=== PATIENT | female | born 1975 | race Hispanic/Latino ===

== ENCOUNTER 2019-10-23 19:41 | Inpatient (IN) | payer OTHER, SELFPAY ==
[~2019-10-23 19:41] MED LIST: Iopamidol 370 76% 100 ML VIAL ONE
[2019-10-23] MEDS ORDERED: Ondansetron PF 4 MG/2 ML Vial ONE (20:15)
[2019-10-23] MEDS ORDERED: Acetaminophen 500 MG TAB ONE (20:15)
[2019-10-23 20:29] LABS: Bilirubin Negative (Negative); Blood, Urine 1+ (Negative); Clarity Clear (Clear); Glucose, Urine (Dipstick) Normal (Negative); Ketone, Urine Negative (Negative); Leukocyte 75 Leu/uL (Negative); Nitrite Negative (Negative); Protein, Urine (Dipstick) 30 mg/dL (Neg-Trace); RBC/HPF 0-3 HPF (0-3); Specific Gravity, Urine 1.005 (1.002-1.036); Squamous Epithelial 0-3 HPF (0-3); Urobilinogen Normal mg/dL (Less than 2); pH, Urine 6.5 (5.0-9.0)
[2019-10-23 20:36] LABS: Bacteria/HPF None Seen HPF (None Seen)
[2019-10-23 20:45] LABS: Hemoglobin 8.1 g/dL (12.0-16.0); Mean Corpuscular HGB CONC 30.3 g/dL (32.0-36.0); Mean Corpuscular Hemoglobin 20.4 pg (27.0-31.0); Mean Corpuscular Volume 67.3 fL (78.0-98.0); Mean Platelet Volume 10.1 fL (7.4-10.4); Platelet Count 490 thou/uL (130-400); RBC Distribution Width 16.6 % (11.5-14.5); Red Blood Cell (RBC) Count 3.96 mill/uL (4.20-5.40); White Blood Cell (WBC) Count 14.7 thou/uL (4.8-10.8)
[2019-10-23 21:00] LABS: Band 1 % (5-11); Eosinophils 1 % (0-10); Hypochromia SLIGHT = 6-15 cells (100X) (0-5/hpf); Lymphocytes 6 % (21-51); MDiff Complete? YES; Microcytosis SLIGHT = 6-15 cells (100X) (0-5/hpf); Monocytes 4 % (0-10); Neutrophil 88 % (42-75); Platelet Morphology Comment Appears Adequate
[2019-10-23 21:02] LABS: ALT (SGPT) 23 U/L (8-55); AST (SGOT) 22 U/L (5-34); Albumin 4.1 g/dL (3.5-5.0); Alkaline Phosphatase 129 U/L (40-110); Anion Gap 15 mmol/L (10-20); BUN (Urea Nitrogen) 6 mg/dL (7.0-18.7); Bilirubin, Total 0.3 mg/dL (0.2-1.2); Calc. Creatinine Clearance 0 mL/min (70-130); Calcium 9.6 mg/dL (7.8-10.44); Carbon Dioxide 23 mmol/L (22-29); Chloride 101 mmol/L (98-107); Estimated GFR-MDRD 54; Globulin 4.7 g/dL (2.4-3.5); Glucose 144 mg/dL (70-105); Potassium 3.2 mmol/L (3.5-5.1); Protein, Total 8.8 g/dL (6.0-8.3); Sodium 136 mmol/L (136-145)
[2019-10-23 21:09] LABS: Pregnancy Test - Urine (BHCG) Negative (Negative); Pregu Control Background? CLEAR/WHITE (CLR/WHITE); Pregu Control Bar Appear? YES (CONTROL BAR); Specific Gravity 1.005 (1.002-1.036)
[2019-10-23] MEDS ORDERED: Morphine 4 MG/ML VIAL ONE (21:21)
--- NOTE | 2019-10-23 22:04 | CT ---
EXAM: CT ABDOMEN AND PELVIS HISTORY: Worsening right flank pain. COMPARISON: None. Procedure: Multiple contiguous axial images were obtained and a CT of the abdomen and pelvis with IV contrast. C oronal reformats were performed. FINDINGS: Lower Chest: within normal limits. Vessels: Normal caliber aorta Heart: Normal heart size Abdomen: Portal vein:Patent Gallbladder: CT evidence of cholelithiasis without definite evidence of cholecystitis. Liver: within normal limits. Pancreas: within normal limits. Spleen: within normal limits. Adrenals: within normal limits. Kidneys: Mildly decreased enhancement of the right kidney with a subtle striated nephrogram. No evide nce of obstructive uropathy. Correlate for pyelonephritis. Peritoneum: No ascites or free air, no fluid collection. Bowel: Limited evaluation due to the lack of oral contrast administration. No evidence of bowel obstr uction. Ileocecal junction is unremarkable. Normal caliber appendix. Scattered fecal material in a nondistended, nondilated colon. Mesentery and Retroperitoneum: No enlarged mesenteric or retroperitoneal lymph nodes. Abdominal Wall: Ventral umbilical hernia containing mesenteric fat Pelvis: Reproductive Organs: Reproductive organs are unremarkable. Pelvis: No mass, lymphadenopathy, free air or free fluid. Bladder: within normal limits. Bones: within normal limits. IMPRESSION: 1. Normal caliber appendix 2. Cholelithiasis without definite evidence of cholecystitis. 3. Decreased enhancement of the right kidney with a mildly striated nephrogram. Correlate for pyelone phritis.
[2019-10-23] MEDS ORDERED: cefTRIAXone\\ROCEPHIN 2 GM VIAL ONE (22:18)
[2019-10-24] MEDS ORDERED: Ondansetron PF 4 MG/2 ML Vial IVP PRN ×2 (01:01→01:27)
[2019-10-24] MEDS ORDERED: Ondansetron ODT 4 MG TAB SL PRN (01:01)
[2019-10-24] MEDS ORDERED: Acetaminophen 325 MG TAB PO PRN (01:01)
[2019-10-24] MEDS ORDERED: Sodium Chloride 0.9% 1,000 ML IV SCH (01:01)
[2019-10-24] MEDS ORDERED: Acetaminophen 650 MG Suppository PR PRN (01:27)
[2019-10-24] MEDS ORDERED: Ondansetron ODT 4 MG TAB PO PRN (01:27)
[2019-10-24] MEDS ORDERED: Morphine 2 MG/ML VIAL SLOW IVP SCH (01:30)
--- NOTE | 2019-10-24 01:41 | PDOC.HHP ---
Hospitalist HPI - History of Present Illness Right flank pain History of Present Illness: Patient presents with complaints of gradually worsening right flank pain which radiates to right groin. Reports having issues with kidney infection in the past but has never had kidney stones. Patient states she continued to feel worse and initially pain was managed with Motrin and Tylenol but in the last couple of days her pain has been uncontrollable with OTC medications. She reports mild nausea. Denies any vomiting. Also reports having fevers and sweats since yesterday. On arrival today her pain was a 10/10 in severity and at present it has eased to a 7/10. She describes pain as a strong ache. ED Course: In the ED she had labs done which were notable for hgb of 8.1 and WCC of 14.7. Platelets 490. Neutrophils 88, Bands 1 Potassium 3.2, BUN 6, Creat 1.10, GFR 54. Lactic acid 0.9. Urine test was negative. CT A/P: 1. Normal caliber appendix 2. Cholelithiasis without definite evidence of cholecystitis. 3. Decreased enhancement of the right kidney with a mildly striated nephrogram. Correlate for pyelonephritis She was started on IV antibiotics with Rocephin, given Morphine for pain. Also given Tylenol 1 g for fever. She has gotten 2 L of NS IV. Hospitalist ROS - Review of Systems Constitutional: reports: fever, chills, malaise Eyes: denies: pain, vision change, conjunctivae inflammation, eyelid inflammation, redness, other ENT: denies: ear pain, ear discharge, nose pain, nose discharge, nose congestion , mouth pain, mouth swelling, throat pain, throat swelling, other Respiratory: denies: cough, dry, shortness of breath, hemoptysis, SOB with excertion, pleuritic pain, sputum, wheezing, other Cardiovascular: denies: chest pain, palpitations, orthopnea, paroxysmal noc. dyspnea, edema, light headedness, other Gastrointestinal: reports: nausea, abdominal pain, other (right flank) Genitourinary: denies: dysuria, frequency, incontinence, hematuria, retention, other Musculoskeletal: reports: back pain (right flank). denies: neck pain, shoulder pain, arm pain, hand pain, leg pain, foot pain, other Skin: denies: rash, lesions, tamera, bruising, other Neurological: denies: weakness, numbness, incoordination, change in speech, confusion, seizures, other - Medication Medications: ALLERGIES: No known drug allergies. CURRENT MEDICATIONS: None. 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 Gastrointestinal: reports: no pertinent history Renal/: reports: Other (pyelonephritis) - Past Surgical History Past Surgical History: reports: (x2) - Family History Family History: reports: no pertinent history - Social History Smoking Status: Never smoker Alcohol: reports: None Drugs: reports: none Living Situation: With Family Activity level: independent ambulation - Exam General Appearance: NAD, awake alert Eye: PERRL, anicteric sclera ENT: normocephalic atraumatic, no oropharyngeal lesions, moist mucosa Neck: supple, symmetric, no lymphadenopathy Heart: RRR, no murmur, normal peripheral pulses Respiratory: CTAB, no wheezes, no rales, no ronchi, normal chest expansion Gastrointestinal: soft, non-tender, normal bowel sounds, no guarding, no rigidity Gastrointestinal - other findings: right CVA tenderness Extremities: no edema Skin: normal turgor, no lesions, no rashes Neurological: cranial nerve grossly intact, normal sensation to touch, no weakness, no focal deficits Musculoskeletal: normal tone, normal strength Psychiatric: normal affect, normal behavior, A&O x 3 Hospitalist Results - Labs Result Diagrams: 10/23/19 20:23 10/23/19 20:23 Lab results: WBC 14.7 thou/uL (4.8-10.8) H 10/23/19 20:23 Hgb 8.1 g/dL (12.0-16.0) L 10/23/19 20:23 Hct 26.6 % (36.0-47.0) L 10/23/19 20:23 MCV 67.3 fL (78.0-98.0) L 10/23/19 20:23 Plt Count 490 thou/uL (130-400) H 10/23/19 20:23 Band Neuts % (Manual) 1 % (5-11) L 10/23/19 20:23 Sodium 136 mmol/L (136-145) 10/23/19 20:23 Potassium 3.2 mmol/L (3.5-5.1) L 10/23/19 20:23 Chloride 101 mmol/L (98-107) 10/23/19 20:23 Carbon Dioxide 23 mmol/L (22-29) 10/23/19 20:23 BUN 6 mg/dL (7.0-18.7) L 10/23/19 20:23 Creatinine 1.10 mg/dL (0.6-1.1) 10/23/19 20:23 Glucose 144 mg/dL (70-105) H 10/23/19 20:23 Lactic Acid 0.9 mmol/L (0.5-2.2) 10/23/19 20:55 Calcium 9.6 mg/dL (7.8-10.44) 10/23/19 20:23 Total Bilirubin 0.3 mg/dL (0.2-1.2) 10/23/19 20:23 AST 22 U/L (5-34) 10/23/19 20:23 ALT 23 U/L (8-55) 10/23/19 20:23 Alkaline Phosphatase 129 U/L (40-110) H 10/23/19 20:23 Serum Total Protein 8.8 g/dL (6.0-8.3) H 10/23/19 20:23 Albumin 4.1 g/dL (3.5-5.0) 10/23/19 20:23 Urine Ketones Negative mg/dL (Negative) 10/23/19 19:58 Urine Blood 1+ (Negative) A 10/23/19 19:58 Urine Nitrite Negative (Negative) 10/23/19 19:58 Ur Leukocyte Esterase 75 Nena/uL (Negative) A 10/23/19 19:58 Urine RBC 0-3 HPF (0-3) 10/23/19 19:58 Urine WBC 11-20 HPF (0-3) A 10/23/19 19:58 Ur Squamous Epith Cells 0-3 HPF (0-3) 10/23/19 19:58 Urine Bacteria None Seen HPF (None Seen) 10/23/19 19:58 - Radiology Interpretation CT scan - abdomen Status: report reviewed by me Hospitalist H&P A/P - Problem (1) Right flank pain Code(s): R10.9 - UNSPECIFIED ABDOMINAL PAIN Status: Acute (2) Pyelonephritis Code(s): N12 - TUBULO-INTERSTITIAL NEPHRITIS, NOT SPCF ACUTE OR CHRONIC Status: Suspected (3) Fever Code(s): R50.9 - FEVER, UNSPECIFIED Status: Acute (4) Nausea alone Status: Acute (5) Hypokalemia Code(s): E87.6 - HYPOKALEMIA Status: Acute (6) Anemia Code(s): D64.9 - ANEMIA, UNSPECIFIED Status: Acute - Plan Plan: Continue IV antibiotics Urine culture pending. Continue IV fluids. Monitor H/H. Iron studies. Monitor electrolytes and replace as necessary. GI prophylaxis with Famotidine. DVT Prophylaxis with mechanical SCDs. Screening COVID test pending. FULL CODE Surrogate decision maker is her Clarence Carlisle.
[2019-10-24] MEDS: Sodium Chloride 0.9% 1,000 ML IV SCH ×3 (02:04→21:29)
[2019-10-24 03:32] LABS: #Eosinphils 0.1 thou/uL (0.0-0.7); #Lymphocytes 1.5 thou/uL (1.20-3.40); #Monocytes 0.8 thou/uL (0.11-0.59); #Neutrophils 10.2 thou/uL (1.40-6.50); %Eosinophils 0.9 % (0.0-10.0); %Lymphocytes 11.6 % (21.0-51.0); %Monocytes 6.5 % (0.0-10.0); Hemoglobin 7.7 g/dL (12.0-16.0); Mean Corpuscular HGB CONC 30.8 g/dL (32.0-36.0); Mean Corpuscular Hemoglobin 20.9 pg (27.0-31.0); Mean Corpuscular Volume 67.9 fL (78.0-98.0); Mean Platelet Volume 9.8 fL (7.4-10.4); Platelet Count 445 thou/uL (130-400); RBC Distribution Width 16.7 % (11.5-14.5); Red Blood Cell (RBC) Count 3.69 mill/uL (4.20-5.40); White Blood Cell (WBC) Count 12.6 thou/uL (4.8-10.8)
[2019-10-24 03:45] LABS: Anion Gap 12 mmol/L (10-20); BUN (Urea Nitrogen) 4 mg/dL (7.0-18.7); Calc. Creatinine Clearance 0 mL/min (70-130); Calcium 8.9 mg/dL (7.8-10.44); Carbon Dioxide 24 mmol/L (22-29); Chloride 104 mmol/L (98-107); Estimated GFR-MDRD 62; Glucose 164 mg/dL (70-105); Potassium 3.2 mmol/L (3.5-5.1); Sodium 137 mmol/L (136-145)
[2019-10-24 03:46] LABS: Iron 9 ug/dL (50-170); Iron Binding Capacity, Total 205 mcg/dL (265-497)
[2019-10-24] MEDS: traMADol HCl 50 MG TAB PO PRN ×2 (05:15→18:26)
[2019-10-24] MEDS: Acetaminophen 325 MG TAB PO PRN ×2 (05:15→16:31)
[2019-10-24 06:19] LABS: Ferritin 63.05 ng/mL (10-291)
[2019-10-24] MEDS: Ferrous Sulfate 325 MG TAB PO SCH ×2 (08:32→16:31)
[2019-10-24] MEDS: Famotidine/PF 20 mg/2ml Vial SLOW IVP SCH ×2 (08:34→20:50)
[2019-10-24 12:01] LABS: SARS-CoV-2 MS2 Positive; SARS-CoV-2 N Gene Negative; SARS-CoV-2 S Gene Negative; SARS-CoV-2 by NAA Not Detected (NotDetected); SARS-CoV-2 orf1ab Negative
--- NOTE | 2019-10-24 13:53 | PDOC.HOSPP ---
- Subjective Encounter Date: 10/24/19 Encounter Time: 09:30 Subjective: no nausea or abd pain this morning feels better - Objective Vital Signs & Weight: Vital Signs (12 hours) Temp Pulse Resp BP Pulse Ox 10/24/19 11:31 157/86 H 10/24/19 10:59 98 F 96 18 168/107 H 99 10/24/19 07:32 98.6 F 91 18 132/77 98 10/24/19 04:00 99.2 F 101 H 16 155/91 H 97 Weight Weight 2.765 oz I&O: 10/23/19 10/24/19 10/25/19 06:59 06:59 06:59 Intake Total 1400 Balance 1400 Result Diagrams: 10/24/19 03:22 10/24/19 03:22 Hospitalist ROS - Medication Medications: Active Medications Generic Name Dose Route Start Last Admin Trade Name Freq PRN Reason Stop Dose Admin Acetaminophen 650 mg 10/24/19 01:27 10/24/19 05:15 Tylenol PO 650 mg Q4H PRN Administration Headache/Fever/Mild Pain (1-3) Famotidine 20 mg 10/24/19 09:00 10/24/19 08:34 Pepcid SLOW IVP 20 mg Q12HR CHRISTOPHE Administration Ferrous Sulfate 325 mg 10/24/19 08:00 10/24/19 08:32 Feosol PO 325 mg BID-WM CHRISTOPHE Administration Sodium Chloride 1,000 mls @ 100 mls/hr 10/24/19 01:32 10/24/19 11:31 Normal Saline 0.9% IV 1,000 mls .Q10H CHRISTOPHE Administration Sodium Chloride 10 ml 10/24/19 09:00 10/24/19 08:34 Flush - Normal Saline IVF 10 ml Q12HR CHRISTOPHE Administration Tramadol HCl 50 mg 10/24/19 01:30 10/24/19 05:15 Ultram PO 50 mg Q4H PRN Administration Moderate Pain (4-6) - Exam General Appearance: awake alert Eye: PERRL, anicteric sclera ENT: no oropharyngeal lesions, dry oral mucosa Neck: supple, no JVD Heart: RRR, no murmur Respiratory: no wheezes, no rales Gastrointestinal: soft, non-tender, non-distended, normal bowel sounds Extremities: no cyanosis, no edema Neurological: cranial nerve grossly intact, no focal deficits Psychiatric: normal affect, A&O x 3 Hosp A/P (1) Sepsis Code(s): A41.9 - SEPSIS, UNSPECIFIED ORGANISM Status: Acute Qualifiers: Sepsis type: sepsis due to unspecified organism (2) Anemia Code(s): D64.9 - ANEMIA, UNSPECIFIED Status: Chronic Qualifiers: Anemia type: iron deficiency (3) Pyelonephritis Code(s): N12 - TUBULO-INTERSTITIAL NEPHRITIS, NOT SPCF ACUTE OR CHRONIC Status: Acute - Plan is on ceftriaxone await culture results continue iv fluids encourage po intake has iron def anemia, will add feso4 CT did not reveal obstr uropathy
[2019-10-24] MEDS ORDERED: cefTRIAXone\\ROCEPHIN 2 GM in Sodium Chloride 0.9% 100 ML IVPB SCH (22:00)
[2019-10-25] MEDS: Sodium Chloride 0.9% 1,000 ML IV SCH (07:10)
[2019-10-25 07:48] VITALS: BP 150/91; TEMP 99.7
[2019-10-25] MEDS: Ferrous Sulfate 325 MG TAB PO SCH (08:36)
[2019-10-25] MEDS: Famotidine/PF 20 mg/2ml Vial SLOW IVP SCH (08:36)
--- NOTE | 2019-10-26 13:56 | DIS ---
DATE OF ADMISSION: 10/23/2019 DATE OF DISCHARGE: 10/25/2019 DISCHARGE DISPOSITION: Home. PRIMARY DISCHARGE DIAGNOSES: Sepsis, pyelonephritis, chronic iron-deficiency anemia. PROCEDURES DONE DURING HOSPITALIZATION: CT of the abdomen and pelvis with contrast done showed findings suggestive of right-sided pyelonephritis. There was cholelithiasis without evidence of cholecystitis. Blood cultures x2, no growth. Urine culture, no growth. Had a white count of 14 on the day of admission. H and H of 7.7 and 25, MCV 67, platelet count 445, BUN 6, creatinine 1.1 on the day of admission. Serum iron 9, TIBC 205, ferritin 63, albumin 4.1. COVID-19 PCR on 10/23/2019 was negative. UA was positive for UTI. Urine test was negative. DISCHARGE MEDICATIONS: 1. Ciprofloxacin 500 mg p.o. twice daily for 7 days. 2. Ferrous sulfate 325 mg p.o. daily. ALLERGIES: NO KNOWN DRUG ALLERGIES. DISCHARGE PLAN: The patient to find a primary care physician in the local area and follow up within one week. BRIEF COURSE DURING HOSPITALIZATION: The patient initially got admitted on the with complaints of right-sided flank pain. This was radiating to the right groin. The patient had elevated white count and a fever of 101.1 degrees on arrival. She was pancultured and was placed on broad-spectrum antibiotics. She has responded to above measures. Her urine culture did not reveal any growth. Blood cultures were negative. Her flank pain has completely resolved and is tolerating oral solid diet. She has remained hemodynamically stable and will be shortly discharged home on ciprofloxacin for a total duration of one week. She has remained hemodynamically stable in the hospital. Please note, I have seen and examined the patient on the day of discharge. Job ID: [id number]
== END 2019-10-25 12:50 | disposition home or self-care (01) | DRG 872 ==
LOC: ERS 19:41 → OBSVTOIN 22:40 → SURG B 22:40
PROVIDERS: ADMIT Internal Medicine; ATTEND Internal Medicine
DX: A41.9 Sepsis, unspecified organism (principal); N10 Acute pyelonephritis; E87.6 Hypokalemia; D50.9 Iron deficiency anemia, unspecified; Z20.828 Contact with and (suspected) exposure to other viral communicable diseases
CPT/HCPCS: 36415; 74177; 80048; 80053; 81003; 81015; 81025; 82607; 82728; 82746; 83540; 83550; 83605; 85025; 87040; 87086; 87635; 96361; 96365; 96375; 96376; G0378; J0696; J2270; J2405; J3490; Q9967; S0028; U0003

== ENCOUNTER 2019-11-23 01:50 | Inpatient (IN) | payer MEDICAID, OTHER, SELFPAY ==
[2019-11-23] MEDS ORDERED: Morphine 4 MG/ML VIAL ONE ×2 (02:26→03:27)
[2019-11-23] MEDS ORDERED: Ondansetron PF 4 MG/2 ML Vial ONE ×2 (02:26→11:40)
[2019-11-23 03:00] LABS: ALT (SGPT) 36 U/L (8-55); AST (SGOT) 30 U/L (5-34); Albumin 4.5 g/dL (3.5-5.0); Alkaline Phosphatase 109 U/L (40-110); Anion Gap 14 mmol/L (10-20); BUN (Urea Nitrogen) 6 mg/dL (7.0-18.7); Bilirubin, Total 0.4 mg/dL (0.2-1.2); Calc. Creatinine Clearance 0 mL/min (70-130); Carbon Dioxide 24 mmol/L (22-29); Chloride 100 mmol/L (98-107); Estimated GFR-MDRD 84; Globulin 3.6 g/dL (2.4-3.5); Glucose 179 mg/dL (70-105); Lipase 19 U/L (8-78); Potassium 3.7 mmol/L (3.5-5.1); Protein, Total 8.1 g/dL (6.0-8.3); Sodium 134 mmol/L (136-145)
[2019-11-23 03:24] LABS: Hemoglobin 10.6 g/dL (12.0-16.0); Mean Corpuscular Volume 75.6 fL (78.0-98.0); Red Blood Cell (RBC) Count 4.26 mill/uL (4.20-5.40); White Blood Cell (WBC) Count 11.7 thou/uL (4.8-10.8)
[2019-11-23 03:26] LABS: #Lymphocytes 1.5 thou/uL (1.20-3.40); #Monocytes 0.3 thou/uL (0.11-0.59); #Neutrophils 9.8 thou/uL (1.40-6.50); %Basophils 0.4 % (0.0-1.0); %Eosinophils 0.3 % (0.0-10.0); %Lymphocytes 12.8 % (21.0-51.0); %Monocytes 2.8 % (0.0-10.0); %Neutrophils 83.7 % (42.0-75.0); Anisocytosis MODERATE=16-30 cells (100X) (0-5/hpf); MDiff Complete? YES; Mean Platelet Volume 11.5 fL (7.4-10.4); Platelet Count 277 thou/uL (130-400); RBC Distribution Width 24.2 % (11.5-14.5)
[2019-11-23 03:51] LABS: Bacteria/HPF None Seen HPF (None Seen); Bilirubin Negative (Negative); Blood, Urine Negative (Negative); Clarity Clear (Clear); Glucose, Urine (Dipstick) 200 mg/dL (Negative); Ketone, Urine Negative (Negative); Leukocyte Negative Leu/uL (Negative); Mucous/LPF Rare LPF (<2+); Nitrite Negative (Negative); Protein, Urine (Dipstick) 100 mg/dL (Neg-Trace); Specific Gravity, Urine 1.012 (1.002-1.036); Squamous Epithelial 0-3 HPF (0-3); Urobilinogen Normal mg/dL (Less than 2); WBC/HPF 0-3 HPF (0-3); pH, Urine 7.5 (5.0-9.0)
[2019-11-23] MEDS ORDERED: cefOXitin Sodium 1 GM in Sodium Chloride 0.9% 100 ML IVPB SCH (04:00)
[2019-11-23] MEDS ORDERED: cefOXitin Sodium/Dextrose,Iso 1 GM in Premix Bag 1 BAG IVPB SCH ×2 (04:00→12:00)
[2019-11-23] MEDS ORDERED: Ondansetron PF 4 MG/2 ML Vial IVP PRN ×2 (05:52→21:45)
[2019-11-23] MEDS ORDERED: Ondansetron ODT 4 MG TAB SL PRN ×2 (05:52→21:45)
[2019-11-23] MEDS: Morphine 4 MG/ML VIAL SLOW IVP PRN ×2 (06:05→13:37)
[2019-11-23] MEDS: Sodium Chloride 0.9% 1,000 ML IV SCH ×2 (06:19→12:40)
[2019-11-23] MEDS ORDERED: hydrALAZINE 20 MG/ML VIAL SLOW IVP SCH (06:45)
[2019-11-23 07:19] VITALS: BMI 35.4
--- NOTE | 2019-11-23 07:51 | ULT ---
PRELIMINARY REPORT/[facility]/EMERGENCY AFTER HOURS PROCEDURE EXAM: US Abdomen Limited, Right Upper Quadrant. CLINICAL HISTORY: Epigastric pain, nausea TECHNIQUE: Real-time ultrasound of the right upper quadrant with image documentation. COMPARISON: None provided. FINDINGS: LIVER: Appears enlarged at 19.3 cm and demonstrates fatty infiltration. GALLBLADDER: Cholelithiasis is noted. No wall thickening. No pericholecystic fluid. The patient demonstrated a po sitive sonographic Jacobsen's sign. COMMON BILE DUCT: Appears dilated at 10 mm and mild intrahepatic ductal dilatation is noted PANCREAS: Mostly obscured by overlying bowel gas. RIGHT KIDNEY: Unremarkable. No hydronephrosis. Measures 11.8 cm IMPRESSION: Cholelithiasis. The patient demonstrated a positive sonographic Jacobsen sign however there is no evide nce for wall thickening or pericholecystic fluid. Intra-and extrahepatic biliary ductal dilatation is noted ELECTRONICALLY SIGNED BY: Arsh Edwards MD Nov 23, 2019 3:06:24 AM CDT This report is intended for review by the ordering physician only, in accordance of law. If you recei ve this report in error, please call [facility] at [phone]. FINAL REPORT Final report by Dr. Zavala Emergency after-hours study ULTRASOUND ABDOMEN LIMITED: (RIGHT UPPER QUADRANT) DATE: 11/23/2019 2:53 AM HISTORY: Right upper quadrant abdominal pain, epigastric pain, nausea, in 44-year-old female FINDINGS: Gallbladder:Multiple gallstones ranging in size from a few millimeters up to 25 mm. No mural thickeni ng or pericholecystic fluid. Positive tenderness over gallbladder. Common duct: 10 mm. Liver:Diffuse mild intrahepatic biliary ductal dilation. Parenchymal echogenicity within normal limit s. Pancreas:Almost completely obscured by shadowing from bowel gas. Right kidney:No hydronephrosis. Agree with preliminary report by [facility]. IMPRESSION: 1) Positive for cholelithiasis. 2) Diffuse dilation of biliary tree, raising the possibility of occult choledocholithiasis causing ob struction. Transcribed Date/Time: 11/23/2019 8:02 AM
[2019-11-23] MEDS ORDERED: hydrALAZINE 20 MG/ML VIAL SLOW IVP PRN (08:12)
[2019-11-23] MEDS ORDERED: Morphine 2 MG/ML VIAL SLOW IVP PRN ×2 (10:15→21:44)
[2019-11-23] MEDS ORDERED: Dexamethasone 20 MG/5 ML VIAL ONE (11:40)
[2019-11-23] MEDS ORDERED: Rocuronium Bromide 10 MG/ML (10ML VIAL) ONE (11:40)
[2019-11-23] MEDS ORDERED: Lidocaine 1% PF 5 ML VIAL ONE (11:40)
[2019-11-23] MEDS ORDERED: PROPOFOL 200 MG/20 ML VIAL ONE (11:40)
[2019-11-23] MEDS ORDERED: PHENYLEPHRINE-NS 100 MCG/ML 10 ML SYRINGE ONE (11:40)
[2019-11-23] MEDS ORDERED: Glycopyrrolate 0.2 MG/ML 5 ML SYRINGE ONE (11:40)
--- NOTE | 2019-11-23 12:19 | CON ---
DATE OF CONSULTATION: PRIMARY CARE PHYSICIAN: Dennis. GENERAL SURGEON: Norbert Gallardo MD HISTORY OF PRESENT ILLNESS: Ms. Barbosa is a 44-year-old female, who came to the emergency room on 11/22 for abdominal pain. She reports that she has had epigastric, right upper quadrant that radiates through to her back, reported it started late morning and has increased. While in the emergency room, she had an abdominal ultrasound, which showed cholelithiasis, no wall thickening, but a positive Jacobsen's sign as well as dilated common bile duct at 10 mm and mild intrahepatic duct dilatation is noted. She also had an enlarged liver at 19.3 and fatty infiltration. Lab work showed an elevated white blood cell count at 11.7, hemoglobin 10.6, hematocrit 32.2, and platelet count 277. Chemistry; sodium 134, BUN is 6, glucose 179, globulin 3.6, otherwise unremarkable. Urine showed protein, glucose, red blood cells, but no bacteria, no leukocytes. She was admitted to General Surgery for possible cholecystectomy. Hospital Service was consulted for medical management as the patient's blood pressure has been elevated during the ER stay and remained that way when she got up to the floor. She is on the surgical unit, awaiting surgical consult and possible surgery. REVIEW OF SYSTEMS: The patient reports abdominal pain, epigastric, right upper quadrant. Reports some nausea. Denies vomiting. Denies fever or chills. All systems are reviewed and are negative unless mentioned in the HPI. PAST MEDICAL HISTORY: None. PAST SURGICAL HISTORY: She has had x2. PSYCHIATRIC HISTORY: None. SOCIAL HISTORY: Denies any alcohol or drug use. Has no smoking history. ALLERGIES: NONE. CURRENT MEDICATIONS: She takes Tylenol 650 mg p.o. as needed for any pain or discomfort. PHYSICAL EXAMINATION: VITAL SIGNS: Blood pressure 193/98, pulse 66, respiratory rate is 18. Pain is 5. PO2 saturations are 99% on room air. CONSTITUTIONAL: The patient is in mild pain, distress. She is alert and oriented to person, place and time. HEENT: Head is atraumatic and normocephalic. Eyes; pupils are equal, round, and reactive to light. Extraocular muscles are intact. ENT; mouth exam is normal. Mucous membranes are moist. NECK: Normal range of motion. Trachea is midline. RESPIRATORY/CHEST: Breath sounds are clear. Chest expansion is equal. CARDIOVASCULAR: Regular rate and rhythm. Heart sounds are normal. ABDOMEN: There is moderate tenderness to the epigastric, right upper quadrant. She has a positive Jacobsen's sign. BACK: Normal inspection. EXTREMITIES: Upper extremity; normal range of motion. Motor strength is normal. Radial pulses are normal. Lower extremity; normal range of motion. Motor strength is normal. Pedal pulses are normal. NEURO: The patient is oriented to person, place, and time. Gait is not assessed. Speech is normal. SKIN: Warm and dry, normal in color. ASSESSMENT AND PLAN: Hypertension. This is most likely due to acute pain. Hydralazine 10 mg p.r.n. q.4 has been ordered. She got the dose early this morning, which had moderate relief. During my exam, she reported her pain had increased. We ordered some more pain medicine and then she has hydralazine as needed. Once the pain subsides and if she is still hypertensive, we will start her on some p.o. medications. She is on some fluid. Has Zofran as needed for nausea. She also is on Mefoxin 1 g prior to surgery. We will continue to follow. We appreciate the consult. Job ID: [id number]
[2019-11-23] MEDS ORDERED: cefOXitin Sodium/Dextrose,Iso 1 GM in Premix Bag 50 BAG IVPB SCH (13:45)
[2019-11-23 13:58] LABS: SARS-CoV-2 MS2 Positive; SARS-CoV-2 N Gene Negative; SARS-CoV-2 S Gene Negative; SARS-CoV-2 by NAA Not Detected (NotDetected); SARS-CoV-2 orf1ab Negative
[2019-11-23] MEDS ORDERED: Fentanyl 100 MCG/2 ML VIAL ONE ×3 (15:36→18:59)
[2019-11-23] MEDS ORDERED: Lidocaine 1% w/Epinephrine 1:100K 20 ML VIAL ONE (15:38)
[2019-11-23] MEDS ORDERED: Bupivacaine 0.25% HCL 30 ML VIAL ONE (15:38)
[2019-11-23] MEDS ORDERED: Iothalamate Meglumine 60% 50 ML VIAL FS ONE (15:38)
--- NOTE | 2019-11-23 17:45 | RAD ---
INTRAOPERATIVE CHOLANGIOGRAM: 11/23/19 PROVIDED CLINICAL HISTORY: Cholecystectomy. FINDINGS: Spot fluoroscopic image of the right upper quadrant was performed by Dr. Gallardo during the course of cholecystectomy, with opacification of a normal appearing biliary tree and duodenum. IMPRESSION: As above. POS: ROCK
[2019-11-23] MEDS: cefOXitin Sodium/Dextrose,Iso 1 GM in Premix Bag 1 BAG IVPB SCH ×2 (17:47→23:05)
[2019-11-23] MEDS ORDERED: Ketorolac Tromethamine 30 MG/ML VIAL IVP PRN (17:57)
[2019-11-23] MEDS ORDERED: Ondansetron HCl/PF 4 MG/2 ML Vial IVP PRN (17:57)
[2019-11-23] MEDS ORDERED: Promethazine HCl 25 MG/ML VIAL SLOW IVP PRN (17:57)
[2019-11-23] MEDS ORDERED: HYDROmorphone 2 MG/ML VIAL SLOW IVP PRN (17:57)
[2019-11-23] MEDS ORDERED: Morphine Sulfate 2 MG/ML SYRINGE SLOW IVP PRN (17:57)
[2019-11-23] MEDS ORDERED: PACU-Morphine 4MG/ML VIAL SLOW IVP PRN (17:57)
[2019-11-23] MEDS ORDERED: Meperidine HCl/PF 25 MG/ML VIAL SLOW IVP PRN (17:57)
[2019-11-23] MEDS ORDERED: Promethazine HCl 25 MG/ML VIAL IM PRN (17:57)
[2019-11-23] MEDS ORDERED: Ketorolac Tromethamine 30 MG/ML VIAL ONE (18:10)
[2019-11-23] MEDS ORDERED: HYDROcodone/Acetaminophen 5/325 mg Tablet PO PRN (21:46)
--- NOTE | 2019-11-23 22:55 | HP ---
CHIEF COMPLAINT: Right upper quadrant abdominal pain, cholelithiasis. HISTORY OF PRESENT ILLNESS: The patient is a 44-year-old female. She developed onset of epigastric right upper quadrant abdominal pain yesterday. She presented to the emergency room late last night. She was evaluated with laboratory studies and gallbladder ultrasound. Gallbladder ultrasound revealed cholelithiasis and a 10 mm common bile duct. Her CBC showed elevated white blood cell count of 11.7, hemoglobin slightly depressed at 10.6. Liver function tests and lipase are entirely normal. Her glucose was elevated at 179. Her blood pressure was over 200 systolic upon arrival to the floor. I suspect, therefore, that she has untreated hypertension and diabetes. PAST MEDICAL HISTORY: Negative. PAST SURGICAL HISTORY: x2. MEDICATIONS: She takes no prescription medications. ALLERGIES: NO KNOWN DRUG ALLERGIES. PERSONAL AND SOCIAL HISTORY: She is with 6 children. She does not work outside the house. She does not smoke nor does she drink alcohol. REVIEW OF SYSTEMS: Unremarkable. FAMILY HISTORY: Noncontributory. PHYSICAL EXAMINATION: VITAL SIGNS: She is afebrile. Vital signs within normal limits except for her elevated blood pressure. HEAD, EYES, EARS, NOSE, AND THROAT: Unremarkable. NECK: Supple without mass or tenderness. LUNGS: Clear to auscultation throughout. CARDIAC: Regular rate and rhythm without murmur. ABDOMEN: Soft with focal tenderness in the right upper quadrant with obvious Jacobsen sign. EXTREMITIES: Unremarkable. ASSESSMENT: The patient with symptomatic cholelithiasis. Since she had reported enlarged common bile duct, I will plan to obtain an intraoperative cholangiogram, but I do recommend laparoscopic cholecystectomy. I discussed the operation in detail with the patient as well as potential risks. She understands and agrees to proceed with surgery at this time. Job ID: [id number]
[2019-11-23] MEDS: HYDROcodone/Acetaminophen 5/325 mg Tablet PO PRN (22:56)
[2019-11-24] MEDS: HYDROcodone/Acetaminophen 5/325 mg Tablet PO PRN ×2 (04:35→11:02)
[2019-11-24] MEDS: cefOXitin Sodium/Dextrose,Iso 1 GM in Premix Bag 1 BAG IVPB SCH (05:46)
[2019-11-24 07:21] VITALS: BP 131/75; TEMP 98.2
--- NOTE | 2019-11-24 11:56 | EKG ---
Test Reason : Blood Pressure : / mmHG Vent. Rate : 071 BPM Atrial Rate : 071 BPM P-R Int : 128 ms QRS Dur : 082 ms QT Int : 422 ms P-R-T Axes : -03 057 046 degrees QTc Int : 458 ms Normal sinus rhythm with sinus arrhythmia Normal ECG Confirmed by DORIS MCGOVERN ([id number]), video effects editor NAPOLEON SHERMAN ([id number]) on 11/24/2019 11:56:05 AM Referred By: Confirmed By:DORIS MCGOVERN
--- NOTE | 2019-11-24 23:05 | OP ---
DATE OF PROCEDURE: 11/23/2019 PREOPERATIVE DIAGNOSIS: Acute cholecystitis. POSTOPERATIVE DIAGNOSIS: Acute cholecystitis with somewhat dilated cystic duct and common bile duct, but without evidence of choledocholithiasis. PROCEDURE PERFORMED: Laparoscopic cholecystectomy with intraoperative cholangiogram. ANESTHESIA: General endotracheal. INDICATIONS: Patient is a 44-year-old female. She presented to the emergency room with severe right upper quadrant abdominal pain. She was noted to have gallstones and evidence of gallbladder inflammation. She had an elevated white blood cell count. Her liver function tests, however, were entirely normal. There was report of a 10 mm common bile duct and I therefore planned cholangiogram. DESCRIPTION OF OPERATION: Informed consent was obtained. Patient was taken to the operating room, where general endotracheal anesthesia was obtained with the patient in supine position. Abdomen was prepped with ChloraPrep and draped in a sterile fashion. Local anesthetic was infiltrated and an 11 mm supraumbilical incision was created through which a Veress needle was passed into the peritoneal cavity and pneumoperitoneum was established using carbon dioxide up to pressure of 15 mmHg. Patient was noted to have an umbilical hernia. It was elected not to proceed through this as I expected there to be inflammation associated with the gallbladder and I did not want to repair her hernia without mesh because of the apparent size of it. Additionally, her obesity was such that her umbilicus was further away from the gallbladder than would have been ideal. Under direct vision, three additional 5 mm right upper quadrant ports were placed. Attention was turned to the gallbladder. This was contracted around numerous hard gallstones. The gallbladder was such that it was extraordinarily difficult to grasp it, not because the gallbladder wall was thickened, but because of the stones to completely fill the inside, but there was no gallbladder wall left to grasp. In order to try to grasp it, I had to use a grasper with teeth in order to grab the fundus and elevated. I then began dissection down to the apex of the gallbladder. This was a very difficult and lengthy dissection due to the extent of the inflammation in this area. I performed a careful and meticulous dissection slowly dissecting as I was able to identify appropriate anatomy. I was eventually able to identify the cystic artery and with substantial difficulty, dissected circumferentially and divided it between clips leaving two on the side to remain within the abdomen. Again, the dissection was quite difficult as I attempted to identify and dissect the cystic duct. This appeared to be dilated and inflamed while still thinned out at the same time. I eventually was able to dissect it. I then dissected up somewhere in the posterior aspect of the gallbladder. Dissection of the gallbladder from within the gallbladder fossa proved to be extraordinarily difficult because she had a gallbladder that had eroded somewhat into the liver, giving her a deeply intrahepatic gallbladder. I returned my attention to the cystic duct. It was clipped proximally and a cholangiogram was obtained. Thankfully, she had normal biliary anatomy with easy emptying through the ampulla into the duodenum. There was no evidence of filling defect. It was a dilated duct, however. The cholangiocath was removed and the duct was doubly clipped. Due to its dilatation, I also placed a PDS Endoloop to further secure the cystic duct stump. With considerable difficulty, I then dissected the gallbladder out of the gallbladder fossa of the liver. I used higher voltage cautery to maintain hemostasis to the extent possible. During the course of the dissection, the gallbladder wall was violated a few times and there was some spillage of gallstones. As the gallbladder was completely extracted from the liver, it was placed in a specimen retrieval sac. All of the spilled stones were retrieved and placed within retrieval sac as well. The gallbladder within the sac was then removed through the 11 mm port site. I had to extend the incision of the skin and the fascia substantially to remove this large hard gallbladder. Attention was returned then to the gallbladder fossa. I irrigated and cauterized this several times. There was never any high flow bleeding, but there was continual oozing from several areas and it was challenging to control. I therefore obtained Alexander powder and coated the gallbladder fossa with this. This appeared to achieve immediate and appropriate hemostasis. All ports and instruments were removed under direct vision. Prior to removing all ports, the fascial defect at the supraumbilical incision was closed with two [id number] sutures of 0 Vicryl using a GraNee needle. Pneumoperitoneum was carefully evacuated. Additional local anesthetic was infiltrated into each port site. Skin edges were approximated with 4-0 Monocryl subcuticular suture. Dermabond was placed externally. There were no complications. Patient tolerated the procedure well and was taken to recovery room in stable condition. Job ID: [id number]
--- NOTE | 2019-12-02 13:02 | PQF ---
CLINICAL DOCUMENTATION CLARIFICATION FORM: Dear : Norbert Gallardo Date / Time: 12/02/2019 Please exercise your independent, professional judgment in responding to the clarification form. Clinical indicators are provided on the bottom of this form for your review Please check appropriate box(es): [ x ] Primary/Essential Hypertension [ ] Emergency [ ] Urgency [ ] Crisis [ ] Transient Hypertension [ ] Other diagnosis [ ] Unable to determine In addition, please specify: Present on Admission (POA): [ x ] Yes [ ] No [ ] Unable to determine To be completed by CDI/Coding staff for physician review: Present Clinical Indicators - Signs / Symptoms / Labs Results and Location in Medical Record [ x ] Hypertension, hydralazine 10 mg prn has been ordered. She got the dose early this morning, which had moderate relief. 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
== END 2019-11-24 11:10 | disposition home or self-care (01) | DRG 419 ==
LOC: ERS 01:50 → SJJU 03:45
PROVIDERS: ADMIT Specialist; ATTEND Specialist
PROC: 0FT44ZZ Resection of Gallbladder, Percutaneous Endoscopic Approach (ICD-10-PCS; principal; 2019-11-23)
PROC: BF13YZZ Fluoroscopy of Gallbladder and Bile Ducts using Other Contrast (ICD-10-PCS; 2019-11-23)
DX: K80.00 Calculus of gallbladder with acute cholecystitis without obstruction (principal); Z20.828 Contact with and (suspected) exposure to other viral communicable diseases; K83.8 Other specified diseases of biliary tract; K42.9 Umbilical hernia without obstruction or gangrene; I10 Essential (primary) hypertension; K76.0 Fatty (change of) liver, not elsewhere classified
CPT/HCPCS: 36415; 47532; 76705; 80053; 81003; 81015; 83690; 84484; 85025; 87635; 88304; 93005; 96374; 96375; 96376; J0360; J0694; J1100; J1610; J1885; J2270; J2405; J2704; J3010; J3490; S0020; U0003